=== PATIENT | male | born 1950 | race African-American/Black ===

== ENCOUNTER 2016-07-06 03:21 | Emergency (ER) | payer MEDICARE ==
[~2016-07-06] VITALS: Ht 172.7 cm; Wt 55.5 kg
[2016-07-06 03:25] VITALS: Ht 172.7 cm; Wt 55.5 kg
--- NOTE | 2016-07-06 03:51 | ERA ---
ER Documentation Chief Complaint Date/Time DATE: 07/06/16 TIME: 03:50 Chief Complaint medication refill hiv medicines, sore throat HPI 66-year-old male presenting with a chief complaint of medication refill. Patient is wanting a medication refill for his HIV medications. Patient is complaining of sores on the tongue and pharyngitis. Patient has no other complaints at this time. Pt denies weight loss, fevers, nausea, vomiting, diarrhea, constipation, hyperhidrosis, rigors, fatigue, difficulty breathing, chest pain, or change in bowl/bladder habits. The patient denies difficulty breathing, dysphagia, change in voice, drooling, fatigue, oral swelling, ear pain or meningismus. ROS All systems reviewed and are negative except as per history of present illness. Allergies Allergies: Coded Allergies: No Known Allergy (Unverified , 07/06/16) Physical Exam Vitals Vital Signs Date Time Temp Pulse Resp B/P Pulse Ox O2 Delivery O2 Flow Rate FiO2 07/06/16 03:25 98.3 96 20 168/90 97 Physical Exam Const: [] Head: Atraumatic Eyes: Normal Conjunctiva ENT: Normal External Ears, Nose and Mouth. Neck: Full range of motion..~ No meningismus. Resp: Clear to auscultation bilaterally Cardio: Regular rate and rhythm, no murmurs Abd: Soft, non tender, non distended. Normal bowel sounds Skin: No petechiae or rashes Back: No midline or flank tenderness Ext: No cyanosis, or edema Neur: Awake and alert Psych: Normal Mood and Affect Procedures/MDM Patient is an HIV positive individual wanting medication refill. Enlisted the help of my supervising physician who has okayed it for me to refill the medication for 1 month and advised the patient that this is a one-time deal and we will no longer refill medication for him and that he has to follow-up with primary care provider for refill. Patient is in no acute distress. Physical exam is unremarkable except for white lesions on the tongue that are unable to be scraped off most consistent with leukoplakia as they are not tender. Patient has no other complaints. Patient is currently stable. Patient will be discharged with discharge instructions and return precautions. Departure Condition: Stable Additional Instructions: Follow up with your PCP within the next 1-3 days. Return the the emergency department immediately if symptoms worsen or change. If you have any questions regarding medications, ask your pharmacist or us before you leave. If any adverse reactions occur while taking your medications, discontinue the treatment and return to the emergency department immediately. Take your medications as directed, and complete the entire course of treatment. VANESSA NAJERA PA-C July 06, 2016 03:51
[2016-07-06] MEDS ORDERED: ABAC1TAB12 PO (04:03)
== END 2016-07-06 04:26 | disposition home or self-care (01) ==
LOC: FTE 03:21
DX: Z76.0 Encounter for issue of repeat prescription (principal)
CPT/HCPCS: 99281

== ENCOUNTER 2017-01-20 08:17 | Inpatient (IN) | payer OTHER ==
[~2017-01-20] VITALS: Ht 180.3 cm; Wt 54.5 kg
[~2017-01-20 08:17] MED LIST: ABAC1TAB12 PO
[2017-01-20] MEDS ORDERED: MAGNESIUM SULFATE 2 GM/50 ML 50 ML IVPB STA (08:20)
[2017-01-20] MEDS ORDERED: IPRATROPIUM (NEB) 0.5 MG/2.5 ML AMP INH STA (08:20)
[2017-01-20] MEDS ORDERED: ALBUTEROL 0.5% (NEB) 2.5 MG/0.5 ML AMP INH STA (08:20)
[2017-01-20] MEDS ORDERED: METHYLPREDNISOLONE 125 MG INJ IV STA (08:20)
[2017-01-20] MEDS: LEVOFLOXACIN 750MG/D5W (PMX) 150 ML IVPB ONE ×2 (08:53→09:12)
--- NOTE | 2017-01-20 09:11 | RADRPT ---
PROCEDURE: XR Chest. CLINICAL INDICATION: Possible sepsis. Dyspnea. TECHNIQUE: Single frontal chest x-ray. COMPARISON: None. FINDINGS: Blunting of the right costophrenic angle is seen. Probable small right pleural effusion is present. Localized scarring at this location is a possibility as well. The lungs are hyperinflated. No focal acute infiltrate is seen. There is no pneumothorax on either side, and no evidence for pneumonia. The cardiomediastinal silhouette is unremarkable. The osseous structures are notable for significan t degenerative enthesopathy of the spine. Bony bridging and old healed post traumatic injury of the left posterolateral rib cage is noted. Surgical clips are seen overlapping the right upper quadrant of the abdomen and/or right lower inferior chest cavity. IMPRESSION: 1. Hyperinflated lungs without acute pulmonary infiltrate. 2. Blunting of the right costophrenic angle. Scarring and/or tiny pleural effusion could cause this appearance. RPTAT: PP .Nain Jacobsen MD, MD Date Time Electronically viewed and signed by .Nain Jacobsen MD, on 01/20/2017 09:10 .B/
[2017-01-20 09:19] LABS: ABNORMAL IP MESSAGE 1; BASOPHILS % 0.2 % (0.0-2.0); EOSINOPHILS % 0.2 % (0.0-7.0); HEMATOCRIT 40.5 % (42.0-52.0); HEMOGLOBIN 13.7 g/dl (14.0-18.0); LYMPHOCYTES # 0.6 10^3/ul (0.8-2.9); LYMPHOCYTES % 6.8 % (15.0-51.0); MEAN CORPUSCULAR HEMOGLOBIN 36.3 pg (29.0-33.0); MEAN CORPUSCULAR HGB CONC 33.8 g/dl (32.0-37.0); MEAN CORPUSCULAR VOLUME 107.4 fl (82.0-101.0); MEAN PLATELET VOLUME 10.4 fl (7.4-10.4); MONOCYTE # 1.1 10^3/ul (0.3-0.9); MONOCYTES % 13.9 % (0.0-11.0); NEUTROPHIL # 6.3 10^3/ul (1.6-7.5); NEUTROPHILS % 78.7 % (39.0-77.0); PLATELET COUNT 145 10^3/UL (140-415); POSITIVE DIFF @See below; RED BLOOD COUNT 3.77 10^6/ul (4.70-6.10); RED CELL DISTRIBUTION WIDTH 11.7 % (11.5-14.5); WHITE BLOOD COUNT 8.1 10^3/ul (4.8-10.8)
[2017-01-20 09:45] LABS: INR 1.01; PROTIME 13.4 Sec (11.9-14.9)
[2017-01-20 09:46] LABS: PARTIAL THROMBOPLASTIN TIME 29.7 Sec (25.0-35.0)
[2017-01-20 09:47] LABS: ALANINE AMINOTRANSFERASE 42 IU/L (13-69); ALBUMIN 4.2 g/dl (3.3-4.9); ALBUMIN/GLOBULIN RATIO 1.16; ALKALINE PHOSPHATASE 72 IU/L (42-121); ANION GAP 15 (8-16); ASPARTATE AMINO TRANSFERASE 48 IU/L (15-46); BILIRUBIN,INDIRECT 0.8 mg/dl (0-1.1); BILIRUBIN,TOTAL 0.8 mg/dl (0.2-1.3); BLOOD UREA NITROGEN 11 mg/dl (7-20); CALCIUM 9.4 mg/dl (8.4-10.2); CARBON DIOXIDE 32 mmol/L (21-31); CHLORIDE 98 mmol/L (97-110); GLUCOSE 90 mg/dl (70-220); LACTATE DEHYDROGENASE 557 IU/L (313-618); POTASSIUM 4.4 mmol/L (3.5-5.1); SODIUM 141 mmol/L (135-144); TOTAL PROTEIN 7.8 g/dl (6.1-8.1)
[2017-01-20 09:58] LABS: TROPONIN-I < 0.012 ng/ml (0.00-0.12)
[2017-01-20] MEDS ORDERED: morphine 4 MG/ML VIAL IV STA (10:11)
[2017-01-20] MEDS ORDERED: ONDANSETRON 4 MG INJ IV STA (10:11)
--- NOTE | 2017-01-20 10:19 | ERD ---
ER Documentation Chief Complaint Chief Complaint PRODUCTIVE COUGH AND CONGESTION WITH MOD SOB. NO FEVERS NOTED MILD CWP HPI This is a very pleasant 66-year-old gentleman history of HIV, unknown CD4 count but undetectable viral load on antiviral medication. The patient has a long- standing history of COPD. He states that he has had productive cough and congestion with moderate shortness of breath for approximately 48 hours. He denies any pleuritic pain. He denies fevers or chills. No recent travel, sick contacts, antibiotics. No recent hospitalization within the last 3 months. He denies AIDS defining illness such as PCP. ROS All systems reviewed and are negative except as per history of present illness. Medications Home Meds Active Scripts Abacavir/Dolutegravir/Lamivudi (Triumeq Tablet) 1 Each Tablet, 1 EACH PO DAILY for 28 Days, TAB Prov:VANESSA NAJERA PA-C 07/06/16 Allergies Allergies: Coded Allergies: No Known Allergy (Unverified , 07/06/16) PMhx/Soc History of Surgery: Yes (BOWEL OBSTRUCTION) Anesthesia Reaction: No Hx Neurological Disorder: No Hx Respiratory Disorders: Yes (COPD) Hx Cardiac Disorders: Yes (HTN) Hx Psychiatric Problems: No Hx Miscellaneous Medical Probl: Yes (HIV) Hx Alcohol Use: No Hx Substance Use: No Hx Tobacco Use: No Smoking Status: Former smoker FmHx Family History: No diabetes Physical Exam Vitals Vital Signs Date Time Temp Pulse Resp B/P Pulse Ox O2 Delivery O2 Flow Rate FiO2 01/20/17 08:32 108 28 94 Nasal Cannula 2.0 01/20/17 08:30 98.7 107 24 157/96 93 Nasal Cannula 2.0 01/20/17 08:30 Nasal Cannula 2.0 01/20/17 08:30 Nasal Cannula 2 01/20/17 08:25 98.1 103 22 154/89 86 Physical Exam General: Well developed, well nourished, no acute distress Head: Normocephalic, atraumatic. Eyes: Pupils equally reactive, EOM intact ENT: Moist mucous membranes Neck: Supple, no lymphadenopathy Respiratory: Diffuse wheezing, increased work of breathing Cardiovascular: Slight tachycardia, no murmurs, rubs, or gallops Abdominal: Soft, non-tender, non-distended, no peritoneal signs : Deferred MSK: No edema, no unilateral swelling, 5/5 strength Neurologic: Alert and oriented, moving all extremities, normal speech, no focal weakness, no cerebellar signs Skin: No rash Psych: Normal mood Result Diagram: 01/20/17 0855 01/20/17 0855 Results 24 hrs Laboratory Tests Test 01/20/17 08:55 White Blood Count 8.110^3/ul Red Blood Count 3.7710^6/ul Hemoglobin 13.7g/dl Hematocrit 40.5% Mean Corpuscular Volume 107.4fl Mean Corpuscular Hemoglobin 36.3pg Mean Corpuscular Hemoglobin Concent 33.8g/dl Red Cell Distribution Width 11.7% Platelet Count 30002^3/UL Mean Platelet Volume 10.4fl Neutrophils % 78.7% Lymphocytes % 6.8% Monocytes % 13.9% Eosinophils % 0.2% Basophils % 0.2% Nucleated Red Blood Cells % 0.0/100WBC Neutrophils # 6.310^3/ul Lymphocytes # 0.610^3/ul Monocytes # 1.110^3/ul Eosinophils # 0.010^3/ul Basophils # 0.010^3/ul Nucleated Red Blood Cells # 0.010^3/ul Prothrombin Time 13.4Sec Prothrombin Time Ratio 1.0 INR International Normalized Ratio 1.01 Activated Partial Thromboplast Time 29.7Sec Sodium Level 141mmol/L Potassium Level 4.4mmol/L Chloride Level 98mmol/L Carbon Dioxide Level 32mmol/L Anion Gap 15 Blood Urea Nitrogen 11mg/dl Creatinine 1.00mg/dl Glucose Level 90mg/dl Lactic Acid Level 1.7mmol/L Calcium Level 9.4mg/dl Total Bilirubin 0.8mg/dl Direct Bilirubin 0.00mg/dl Indirect Bilirubin 0.8mg/dl Aspartate Amino Transf (AST/SGOT) 48IU/L Alanine Aminotransferase (ALT/SGPT) 42IU/L Alkaline Phosphatase 72IU/L Lactate Dehydrogenase 557IU/L Troponin I < 0.012ng/ml Total Protein 7.8g/dl Albumin 4.2g/dl Globulin 3.60g/dl Albumin/Globulin Ratio 1.16 Current Medications Medications (Trade) Dose Ordered Sig/Jude Route PRN Reason Start Time Stop Time Status Last Admin Dose Admin Levofloxacin/ Dextrose (Levaquin 750 Mg/ D5W 150 ml (Pmx)) 150 ml @ 100 mls/hr ONCE ONCE IVPB 01/20/17 08:30 01/20/17 09:59 DC 01/20/17 09:12 Albuterol (Proventil 0.5% (Neb)) 10 mg ONCE STAT INH 01/20/17 08:20 01/20/17 08:24 DC 01/20/17 08:30 Ipratropium [place] (Atrovent 0.02% (Neb)) 1 mg ONCE STAT INH 01/20/17 08:20 01/20/17 08:24 DC 01/20/17 08:30 Methylprednisolone Sodium Succinate 125 mg 125 mg ONCE STAT IV 01/20/17 08:20 01/20/17 08:24 DC 01/20/17 08:52 Magnesium Sulfate (Magnesium Sulfate 2 Gm/50 ml) 50 ml @ 25 mls/hr ONCE STAT IVPB 01/20/17 08:20 01/20/17 10:19 01/20/17 08:52 Morphine Sulfate (morphine) 4 mg ONCE STAT IV 01/20/17 10:11 01/20/17 10:12 DC Ondansetron HCl (Zofran Inj) 4 mg ONCE STAT IV 01/20/17 10:11 01/20/17 10:12 DC Procedures/MDM EKG, MONITORS, & DIAGNOSTIC IMAGING: EKG: I reviewed and interpreted a 12-lead EKG. Rhythm: Normal sinus rhythm Ectopy: None Intervals: No abnormalities ST segments: No elevations or depressions T waves: No contiguous inversions Chest x-ray: I reviewed and interpreted a 1 view of the chest Mediastinum: No enlargement Cardiac silhouette: No cardiomegaly Airspace: Clear lung guerrero bilaterally without evidence of pneumothorax Bones: No evidence of fracture LAB INTERPRETATION: No significant leukocytosis, negative troponin, normal lactic acid, normal LDH MEDICAL DECISION MAKING: The patient has a history of COPD and presents with likely COPD with exacerbation. The patient will need sepsis screening lower clinical concern for pneumonia. The patient is at risk for this however. No signs or symptoms concerning for pulmonary embolism. The patient will benefit from breathing treatment. He does have hypoxia I would tolerate lower saturations around 91 and 92% though given the patient's history of COPD. ER COURSE: Patient was given a breathing treatment, magnesium, Solu-Medrol, Levaquin. Blood cultures taken prior to antibiotics. Antibiotics provided for treatment of COPD exacerbation rather than pneumonia. The patient was given IV fluids. The patient does have mild improvement of symptoms but still has significant oxygen requirement with 2-3 L to require saturations of 91%. For this reason I would recommend inpatient hospitalization. The patient has no white count, negative troponin, normal lactic acid. No evidence of PCP pneumonia. The patient's symptoms are improving. I kept the patient and/or family informed of laboratory and diagnostic imaging results throughout the emergency room course. DISPOSITION PLAN: Medical surgical admission for management of COPD with exacerbation requiring frequent nebs. CONSULTATION: Accepting care team and consultations: I discussed the current laboratory data, diagnostic imaging and emergency care provided. Admitting team: Dr. Calixto Admitting team indication: Insurance directed Departure Diagnosis: Primary Impression: COPD with exacerbation Additional Impressions: Hypoxia History of HIV infection Condition: Stable JEAN CLAUDE LOMELI MD Jan 20, 2017 10:19
[2017-01-20 10:30] VITALS: TEMP 98.7
[2017-01-20] MEDS ORDERED: ACETAMINOPHEN 325 MG TAB PO PRN (10:30)
[2017-01-20] MEDS ORDERED: ONDANSETRON 4 MG INJ IV PRN ×2 (10:30→12:30)
--- NOTE | 2017-01-20 11:27 | HP ---
Date/Time of Note Date/Time of Note DATE: 01/20/17 TIME: 11:20 Assessment/Plan VTE Prophylaxis VTE Prophylaxis Intervention: LMWH Assessment/Plan Assessment/Plan 66 yo M with a 2 day hx of SOB and back pain admitted and mannaged as follows: 1. COPD exacerbation with hypoxia 2. Influenza B infection causing atypical Pneumonia 3. HIV disease on HAART therapy PLAN: Treat COPD with RTC bronchodilator therapy and supplemental O2. Patient had high dose parenteral steroid in ER, will hold off on continuing in the setting of #2 Tamiflu therapy and droplet precautions Continue HAART therapy and assess for control Supportive care and PRN pain control Further interventions per clinical course. Plan of care has been discussed with patient, questions answered and patient has verbalized understanding. HPI/ROS Admit Date/Time Admit Date/Time 01/20/17 Hx of Present Illness 66-year-old male with a past medical history of HIV on treatment, COPD who presents today with a 2 day history of worsening difficulty in breathing as well as back pain bilaterally. Patient states his been having worsening cough productive of greenish sputum, he mentions night sweats but he is a poor historian and when I try to get more information about that it was not quite clear. He says he has had subjective fevers however. Patient was trying to really emphasize the fact that he has been and was still ill, and as a result, his history was somewhat sketchy. He does state he has been compliant with his HIV medications however, while he does remember his last CD4 count, he knows his tests have always been good. He quit smoking more than 13 years ago, but will smoke marijuana very occasionally once a month. He is on multiple inhalers at home including Spiriva and breo and states he has been using these with no improvement. He is being admitted for COPD exacerbation and hypoxia. Also found to be positive for influenza. ROS 12 point review if systems was done and pertinent findings are as noted. Constitutional: fatigue, No chills, No febrile Respiratory: cough, pleuritic pain, shortness of breath, sputum, wheezing Cardiovascular: No chest pain Gastrointestinal: no complaints Musculoskeletal: back pain Neurologic: no complaints PMH/Family/Social Past Medical History * HIV * COPD Past Surgical History * exp lap for bowel obstruction Social History Smoking Status: Former smoker Exam/Review of Systems Vital Signs Vitals Vital Signs Date Time Temp Pulse Resp B/P Pulse Ox O2 Delivery O2 Flow Rate FiO2 01/20/17 08:32 108 28 94 Nasal Cannula 2.0 01/20/17 08:30 98.7 157/96 Exam Constitutional: alert, oriented, No distress Psych: anxiety Head: atraumatic, normocephalic Eyes: PERRL ENMT: nl external ears & nose, nl lips & teeth Neck: supple, No jvd Respiratory: crackles/rales (mild in R lung base), diminished breath sounds, No labored breathing, No wheezing Cardiovascular: regular rate and rhythm, No murmurs/extra sounds Extremities: No edema Neurological: nl mental status Labs Result Diagram: 01/20/1785401/20/1755 Medications Medications Current Medications Oseltamivir Phosphate (Tamiflu) 75 mg ONCE ONCE PO ; Start 01/20/17 at 11:30; Stop 01/20/17 at 11:31 Procedures Procedures Laboratory Tests Test 01/20/17 08:55 White Blood Count 8.110^3/ul Red Blood Count 3.7710^6/ul Hemoglobin 13.7g/dl Hematocrit 40.5% Mean Corpuscular Volume 107.4fl Mean Corpuscular Hemoglobin 36.3pg Mean Corpuscular Hemoglobin Concent 33.8g/dl Red Cell Distribution Width 11.7% Platelet Count 41188^3/UL Mean Platelet Volume 10.4fl Neutrophils % 78.7% Lymphocytes % 6.8% Monocytes % 13.9% Eosinophils % 0.2% Basophils % 0.2% Nucleated Red Blood Cells % 0.0/100WBC Neutrophils # 6.310^3/ul Lymphocytes # 0.610^3/ul Monocytes # 1.110^3/ul Eosinophils # 0.010^3/ul Basophils # 0.010^3/ul Nucleated Red Blood Cells # 0.010^3/ul Prothrombin Time 13.4Sec Prothrombin Time Ratio 1.0 INR International Normalized Ratio 1.01 Activated Partial Thromboplast Time 29.7Sec Sodium Level 141mmol/L Potassium Level 4.4mmol/L Chloride Level 98mmol/L Carbon Dioxide Level 32mmol/L Anion Gap 15 Blood Urea Nitrogen 11mg/dl Creatinine 1.00mg/dl Glucose Level 90mg/dl Lactic Acid Level 1.7mmol/L Calcium Level 9.4mg/dl Total Bilirubin 0.8mg/dl Direct Bilirubin 0.00mg/dl Indirect Bilirubin 0.8mg/dl Aspartate Amino Transf (AST/SGOT) 48IU/L Alanine Aminotransferase (ALT/SGPT) 42IU/L Alkaline Phosphatase 72IU/L Lactate Dehydrogenase 557IU/L Troponin I < 0.012ng/ml Total Protein 7.8g/dl Albumin 4.2g/dl Globulin 3.60g/dl Albumin/Globulin Ratio 1.16 Current Medications Medications (Trade) Dose Ordered Sig/Jude Route PRN Reason Start Time Stop Time Status Last Admin Dose Admin Levofloxacin/ Dextrose (Levaquin 750 Mg/ D5W 150 ml (Pmx)) 150 ml @ 100 mls/hr ONCE ONCE IVPB 01/20/17 08:30 01/20/17 09:59 DC 01/20/17 09:12 100 MLS/HR Albuterol (Proventil 0.5% (Neb)) 10 mg ONCE STAT INH 01/20/17 08:20 01/20/17 08:24 DC 01/20/17 08:30 10 MG Ipratropium [place] (Atrovent 0.02% (Neb)) 1 mg ONCE STAT INH 01/20/17 08:20 01/20/17 08:24 DC 01/20/17 08:30 1 MG Methylprednisolone Sodium Succinate 125 mg 125 mg ONCE STAT IV 01/20/17 08:20 01/20/17 08:24 DC 01/20/17 08:52 125 MG Magnesium Sulfate (Magnesium Sulfate 2 Gm/50 ml) 50 ml @ 25 mls/hr ONCE STAT IVPB 01/20/17 08:20 01/20/17 10:19 DC 01/20/17 08:52 25 MLS/HR Morphine Sulfate (morphine) 4 mg ONCE STAT IV 01/20/17 10:11 01/20/17 10:12 DC 01/20/17 10:32 4 MG Ondansetron HCl (Zofran Inj) 4 mg ONCE STAT IV 01/20/17 10:11 01/20/17 10:12 DC 01/20/17 10:32 4 MG Ondansetron HCl (Zofran Inj) 4 mg BRIDGE ORDER PRN IV NAUSEA AND/OR VOMITING 01/20/17 10:30 01/21/17 10:29 Acetaminophen (Tylenol Tab) 650 mg ER BRIDGE PRN PO MILD PAIN/FEVER 01/20/17 10:30 01/21/17 10:29 Oseltamivir Phosphate (Tamiflu) 75 mg ONCE ONCE PO 01/20/17 11:30 01/20/17 11:31 PROCEDURE: XR Chest. CLINICAL INDICATION: Possible sepsis. Dyspnea. TECHNIQUE: Single frontal chest x-ray. COMPARISON: None. FINDINGS: Blunting of the right costophrenic angle is seen. Probable small right pleural effusion is present. Localized scarring at this location is a possibility as well. The lungs are hyperinflated. No focal acute infiltrate is seen. There is no pneumothorax on either side, and no evidence for pneumonia. The cardiomediastinal silhouette is unremarkable. The osseous structures are notable for significant degenerative enthesopathy of the spine. Bony bridging and old healed post traumatic injury of the left posterolateral rib cage is noted. Surgical clips are seen overlapping the right upper quadrant of the abdomen and/or right lower inferior chest cavity. IMPRESSION: 1. Hyperinflated lungs without acute pulmonary infiltrate. 2. Blunting of the right costophrenic angle. Scarring and/or tiny pleural effusion could cause this appearance. RPTAT: PP .Nain Jacobsen MD, MD Date Time Electronically viewed and signed by .Nain Jacobsen MD, MD on 01/20/2017 09:10 .B/ CC: JEAN CLAUDE LOMELI MD I reviewed EKG Rate: Within normal limits Rhythm: sinus Note: No ST elevation or depressions noted concerning for acute ischemic event. CATHERINE CATHERINE Jan 20, 2017 11:27
[2017-01-20] MEDS ORDERED: OSELTAMIVIR 75 MG CAP PO ONE (11:30)
[2017-01-20] MEDS ORDERED: NON-FORMULARY/PATIENT OWN MED (Abacavir/Dolutegravir/Lamivudi (Triumeq Tablet) 1 EACH) PO SCH (12:30)
[2017-01-20 14:10] VITALS: BP 136/89; PULSE 102; RESP 18
--- NOTE | 2017-01-20 14:44 | RADRPT ---
Echocardiogram Report Patient Name: LIZABETH HART Gender: Male Date: 1950 Study Date: 20-Jan-2017 Front Maker Lockstitch: Pola Naidu [facility] Location: [facility] Ref. Physician: CATHERINE CATHERINE Quality: Adequate Procedures: Transthoracic echocardiogram with complete 2D, M-Mode, and doppler examination. Indications: Hypoxia. 2D/M Mode Doppler Measurement Value Normal Ranges Measurement Value Normal Ranges LVIDd 2D 3.0 3.5 - 5.6 cm AV Peak Eliecer 1.4 m/sec LVIDs 2D 1.9 2.1 - 4.1 cm AV Peak PG 7.0 mmHg FS 2D 34.5 % LVOT Peak Eliecer 1.0 m/sec LVPWd 2D 1.3 0.6 - 1.1 cm LVOT Peak PG 4.0 mmHg IVSd 2D 1.3 0.6 - 1.1 cm MV E Peak Eliecer 0.8 m/sec IVS/LVPW 2D 1.0 MV A Peak Eliecer 1.1 m/sec AoR Diam 2D 3.4 2.0 - 3.7 cm MV E/A 0.7 LA/Ao 2D 1 0 - 1 MV Decel Time 137 msec EDV 2D 25.9 cm3 MV E/A 0.7 ESV 2D 7.3 cm3 TR Peak Eliecer 3.5 m/sec LA Dimen 2D 3.2 2.3 - 4.0 cm TR Peak PG 49.0 mmHg RVSP 59.0 mmHg Findings Left Ventricle: Normal left ventricular systolic function. Normal left ventricular cavity size. Mild concentric left ventricular hypertrophy. Ejection fraction is visually estimated at 65 %. Abnormal Diastolic Function. Right Ventricle: Normal right ventricular size. Normal right ventricular systolic function. Left Atrium: The left atrium is normal in size. Right Atrium: The right atrium is normal in size. Mitral Valve: Mild mitral leaflet calcification. Mild mitral annular calcification. Trace mitral regurgitation. Aortic Valve: Normal appearance of the aortic valve. No significant aortic stenosis or insufficiency. Tricuspid Valve: Normal appearance of the tricuspid valve. Estimated peak PA systolic pressure 59 mmHg. There is mild tricuspid regurgitation. Pulmonic Valve: Pulmonic valve not well visualized. There is trace pulmonic regurgitation. Pericardium: Normal pericardium with no significant pericardial effusion. Aorta: Normal aortic root. IVC: Normal size and normal respiratory collapse consistent with normal right atrial pressure. Conclusions 1.Normal left ventricular systolic function. Normal left ventricular cavity size. Mild concentric left ventricular hypertrophy. Ejection fraction is visually estimated at 65 %. Abnormal Diastolic Function. 2.The left atrium is normal in size. 3.Mild mitral leaflet calcification. Mild mitral annular calcification. Trace mitral regurgitation. 4.Normal appearance of the aortic valve. No significant aortic stenosis or insufficiency. 5.Normal appearance of the tricuspid valve. Estimated peak PA systolic pressure 59 mmHg. There is mild tricuspid regurgitation. 6.Normal size and normal respiratory collapse consistent with normal right atrial pressure. Electronically Signed By: Damaso Foreman 20-Jan-2017 14:43:04 -0800 Patient Name: LIZABETH HART Study Date: 20-Jan-[id number]
[2017-01-20] MEDS: HYDROCODONE/APAP (5/325) TAB PO PRN ×2 (15:01→19:09)
[2017-01-20 15:14] VITALS: Ht 180.3 cm; Wt 54.5 kg
[2017-01-20] MEDS: [UNRECOGNIZED DRUG - REMARK] XX SCH (15:30)
[2017-01-20] MEDS: ALBUTEROL/IPRATROPIUM (NEB) 3 ML AMP HHN SCH ×2 (17:22→21:28)
[2017-01-20 20:12] VITALS: BP 151/87; RESP 17
[2017-01-20] MEDS: GABAPENTIN 100 MG CAP NGT SCH (21:29)
[2017-01-20] MEDS: OSELTAMIVIR 75 MG CAP PO SCH (21:30)
[2017-01-20] MEDS: DOCUSATE SODIUM 100 MG CAP PO SCH (21:30)
[2017-01-20] MEDS: SALMETEROL/FLUTICASONE 250/50 INHA INH SCH (22:46)
[2017-01-21] MEDS: ALBUTEROL/IPRATROPIUM (NEB) 3 ML AMP HHN SCH ×7 (01:41→20:54)
[2017-01-21] MEDS: HYDROCODONE/APAP (5/325) TAB PO PRN ×4 (02:25→18:00)
[2017-01-21 02:27] VITALS: BP 117/73; RESP 17
--- NOTE | 2017-01-21 07:20 | CONS ---
DATE OF ADMISSION: 01/20/2017 DATE OF CONSULTATION: 01/20/2017 INFECTIOUS DISEASE CONSULTATION REASON FOR CONSULTATION: Antibiotic management. HISTORY OF PRESENT ILLNESS: Sanford Gates is a 66-year-old male who comes in with shortness of br eath and back pain, and is being seen for antibiotic management. His past problems include: 1. HIV, on treatment. 2. COPD. He presents today with a 2-day history of increasing difficulty in breathing, as well as back pain. The patient states he has been having worsening cough productive of greenish sputum. He mentions n ight sweats, but he is a poor historian. He does have subjective fevers. He has been compliant wit h his HIV medications. He quit smoking 13 years ago. He will occasionally smokes marijuana. He is on multiple inhalers at home including Spiriva and Breo. Currently being admitted for exacerbation of COPD, hypoxemia and for influenza ____. On admission, his white count was 8.1, H and H of 13.7 and 40.5, platelet count of 145,000. BUN and creatinine if 11/1.0. His AST is 48, ALT is 42. Lact ate dehydrogenase 557. PAST MEDICAL HISTORY: Operations: Status post exploratory laparotomy for bowel obstruction. FAMILY HISTORY: Noncontributory. SOCIAL HISTORY: He is a former smoker, he does not drink or abuse drugs. ALLERGIES: NONE TO PENICILLIN, SULFA OR FOODS. MEDICATIONS: Per chart. REVIEW OF SYSTEMS: As per HPI. PHYSICAL EXAMINATION: GENERAL: The patient is a well-developed, well-nourished male who is alert, responsive, in no acute distress. VITAL SIGNS: Stable. He is afebrile. SKIN: Without generalized rash. HEENT: Within normal limits. NECK: Supple. LYMPH NODES: None palpable. CHEST: Decreased breath sounds at the bases. HEART: Without murmur or gallop. ABDOMEN: Soft, nontender without organosplenomegaly or masses. EXTREMITIES: Without cyanosis, clubbing or edema. RECTAL AND GENITAL: Deferred. NEUROLOGIC: No focal neurological abnormality. The patient presents now with worsening of chronic obstructive pulmonary disease, his influenza ____ is positive. The patient started on Tamiflu 75 mg b.i.d. Chest x-ray shows hyperinflated lungs wi thout acute pulmonary infiltrate, blunting of the costophrenic angles, scarring and/or tiny pleural effusions could cause this appearance. IMPRESSION AND PLAN: Continue him on Tamiflu. If he becomes more symptomatic, we will add antibiot ics to his regimen. I believe he received 1 dose of Levaquin and 1 dose of methylprednisolone. I w ill dictate my findings to the hospitalist. Dictated By: VI FERRER MD, JD/ANIL Conf#: [id number] DID#: [id number] CC: CATHERINE CATHERINE MD;*EndCC*
[2017-01-21 07:36] VITALS: BP 100/66; RESP 20
[2017-01-21] MEDS: GABAPENTIN 100 MG CAP NGT SCH ×3 (09:08→21:25)
[2017-01-21] MEDS: OSELTAMIVIR 75 MG CAP PO SCH ×2 (09:08→21:25)
[2017-01-21] MEDS: DOCUSATE SODIUM 100 MG CAP PO SCH ×2 (09:08→21:25)
[2017-01-21] MEDS: SALMETEROL/FLUTICASONE 250/50 INHA INH SCH ×2 (09:09→21:25)
[2017-01-21 09:11] VITALS: BP 113/71
[2017-01-21] MEDS: LISINOPRIL 10 MG TAB PO SCH (09:11)
--- NOTE | 2017-01-21 12:02 | PN ---
Date/Time of Note Date/Time of Note DATE: 01/21/17 TIME: 11:59 Assessment/Plan VTE Prophylaxis VTE Prophylaxis Intervention: SCD's Lines/Catheters Urinary Cath still in place: No Assessment/Plan Assessment/Plan 66 yo M with a 2 day hx of SOB and back pain admitted and mannaged as follows: 1. COPD exacerbation with hypoxia: improving 2. Influenza B infection causing atypical Pneumonia 3. HIV disease on HAART therapy PLAN: Continue to treat COPD with RTC bronchodilator therapy and supplemental O2 / wean as tolerated Patient had high dose parenteral steroid in ER, will continue to hold off on continuing in the setting of #2 Continue Tamiflu therapy and droplet precautions Continue HAART therapy and assess for control Add levaquin per ID recs Supportive care and PRN pain control Further interventions per clinical course. Plan of care has been discussed with patient, questions answered and patient has verbalized understanding. Subjective 24 Hr Interval Summary Free Text/Dictation Still hypoxic requiring 2L, coughing, pain is improved, but still present with inspiration Exam/Review of Systems Vital Signs Vitals Vital Signs Date Time Temp Pulse Resp B/P Pulse Ox O2 Delivery O2 Flow Rate FiO2 01/21/17 09:11 113/71 01/21/17 08:34 98 18 92 21 01/21/17 07:36 97.9 01/21/17 05:49 Nasal Cannula 2.0 Intake and Output 01/20/17 01/20/17 01/21/17 15:00 23:00 07:00 Intake Total 200 ml 600 ml Balance 200 ml 600 ml Results Result Diagram: 01/20/17 0855 01/20/17 0855 Results 24 hrs Laboratory Tests Test 01/20/17 12:26 01/21/17 11:02 Lactic Acid Level 2.4 *H White Blood Count Pending Red Blood Count Pending Hemoglobin Pending Hematocrit Pending Mean Corpuscular Volume Pending Mean Corpuscular Hemoglobin Pending Mean Corpuscular Hemoglobin Concent Pending Red Cell Distribution Width Pending Platelet Count Pending Mean Platelet Volume Pending Medications Medications Current Medications Oseltamivir Phosphate (Tamiflu) 75 mg BID PO Last administered on 01/21/17t 09 :08; Admin Dose 75 MG; Start 01/20/17 at 21:00 Miscellaneous Information 1 each DAILY PO ; Start 01/20/17 at 12:30; Status UNV Salmeterol Xinafoate/ Fluticasone (Advair 250/50 Diskus) 1 inh BID INH Last administered on 01/21/17 09:09; Admin Dose 1 INH; Start 01/20/17 at 21:00 Tiotropium [place] (Spiriva) 1 inh DAILY INH ; Start 01/21/17 at 09:00 Acetaminophen/ Hydrocodone Bitart ([place] (5/325)) 1 tab Q4H PRN PO pain Last administered on 01/21/17 07:08; Admin Dose 1 TAB; Start 01/20/17 at 12:30 Docusate Sodium (Colace) 100 mg BID PO Last administered on 01/21/17 09:08; Admin Dose 100 MG; Start 01/20/17 at 21:00 Ondansetron HCl (Zofran Inj) 4 mg Q6H PRN IV NAUSEA AND/OR VOMITING; Start 12/27 at 12:30 Miscellaneous Information (*Order Clarification Bulletin) MEDICATION REQUIRES CLARIFICATI... Q8H XX ; Start 01/20/17 at 15:30 Gabapentin (Neurontin) 100 mg TID NGT Last administered on 01/21/17 09:08; Admin Dose 100 MG; Start 01/20/17 at 21:00 Lisinopril (Zestril) 10 mg DAILY PO Last administered on 01/21/17 09:11; Admin Dose 10 MG; Start 01/21/17 at 09:00 Procedures Procedures Echocardiogram Report Patient Name: LIZABETH HART Gender: Male Date: 1950 Study Date: 20-Jan-2017 Retail Specialist: Pola Naidu [facility] Location: [facility] Ref. Physician: CATHERINE CATHERINE Quality: Adequate Procedures: Transthoracic echocardiogram with complete 2D, M-Mode, and doppler examination. Indications: Hypoxia. 2D/M Mode Doppler Measurement Value Normal Ranges Measurement Value Normal Ranges LVIDd 2D 3.0 3.5 - 5.6 cm AV Peak Eliecer 1.4 m/sec LVIDs 2D 1.9 2.1 - 4.1 cm AV Peak PG 7.0 mmHg FS 2D 34.5 % LVOT Peak Eliecer 1.0 m/sec LVPWd 2D 1.3 0.6 - 1.1 cm LVOT Peak PG 4.0 mmHg IVSd 2D 1.3 0.6 - 1.1 cm MV E Peak Eliecer 0.8 m/sec IVS/LVPW 2D 1.0 MV A Peak Eliecer 1.1 m/sec AoR Diam 2D 3.4 2.0 - 3.7 cm MV E/A 0.7 LA/Ao 2D 1 0 - 1 MV Decel Time 137 msec EDV 2D 25.9 cm3 MV E/A 0.7 ESV 2D 7.3 cm3 TR Peak Eliecer 3.5 m/sec LA Dimen 2D 3.2 2.3 - 4.0 cm TR Peak PG 49.0 mmHg RVSP 59.0 mmHg Findings Left Ventricle: Normal left ventricular systolic function. Normal left ventricular cavity size. Mild concentric left ventricular hypertrophy. Ejection fraction is visually estimated at 65 %. Abnormal Diastolic Function. Right Ventricle: Normal right ventricular size. Normal right ventricular systolic function. Left Atrium: The left atrium is normal in size. Right Atrium: The right atrium is normal in size. Mitral Valve: Mild mitral leaflet calcification. Mild mitral annular calcification. Trace mitral regurgitation. Aortic Valve: Normal appearance of the aortic valve. No significant aortic stenosis or insufficiency. Tricuspid Valve: Normal appearance of the tricuspid valve. Estimated peak PA systolic pressure 59 mmHg. There is mild tricuspid regurgitation. Pulmonic Valve: Pulmonic valve not well visualized. There is trace pulmonic regurgitation. Pericardium: Normal pericardium with no significant pericardial effusion. Aorta: Normal aortic root. IVC: Normal size and normal respiratory collapse consistent with normal right atrial pressure. Conclusions 1. Normal left ventricular systolic function. Normal left ventricular cavity size. Mild concentric left ventricular hypertrophy. Ejection fraction is visually estimated at 65 %. Abnormal Diastolic Function. 2. The left atrium is normal in size. 3. Mild mitral leaflet calcification. Mild mitral annular calcification. Trace mitral regurgitation. 4. Normal appearance of the aortic valve. No significant aortic stenosis or insufficiency. 5. Normal appearance of the tricuspid valve. Estimated peak PA systolic pressure 59 mmHg. There is mild tricuspid regurgitation. 6. Normal size and normal respiratory collapse consistent with normal right atrial pressure. Electronically Signed By: Damaso Foreman 20-Jan-2017 14:43:04 -0800 Patient Name: LIZABETH HART Study Date: 20-Jan-2017 CATHERINE CATHERINE Jan 21, 2017 12:02
[2017-01-21 12:05] LABS: BASOPHILS % 0.1 % (0.0-2.0); HEMATOCRIT 35.5 % (42.0-52.0); HEMOGLOBIN 12.3 g/dl (14.0-18.0); LYMPHOCYTES # 0.8 10^3/ul (0.8-2.9); LYMPHOCYTES % 6.8 % (15.0-51.0); MEAN CORPUSCULAR HEMOGLOBIN 36.9 pg (29.0-33.0); MEAN CORPUSCULAR HGB CONC 34.6 g/dl (32.0-37.0); MEAN CORPUSCULAR VOLUME 106.6 fl (82.0-101.0); MEAN PLATELET VOLUME 10.9 fl (7.4-10.4); MONOCYTE # 1.2 10^3/ul (0.3-0.9); NEUTROPHIL # 9.7 10^3/ul (1.6-7.5); NEUTROPHILS % 82.7 % (39.0-77.0); PLATELET COUNT 150 10^3/UL (140-415); RED BLOOD COUNT 3.33 10^6/ul (4.70-6.10); RED CELL DISTRIBUTION WIDTH 11.6 % (11.5-14.5); WHITE BLOOD COUNT 11.7 10^3/ul (4.8-10.8)
[2017-01-21 12:14] LABS: ALBUMIN 3.6 g/dl (3.3-4.9); BILIRUBIN,INDIRECT 0.3 mg/dl (0-1.1); BILIRUBIN,TOTAL 0.3 mg/dl (0.2-1.3); CALCIUM 8.9 mg/dl (8.4-10.2); CREATININE 1.12 mg/dl (0.61-1.24); POTASSIUM 4.1 mmol/L (3.5-5.1); TOTAL PROTEIN 6.7 g/dl (6.1-8.1)
[2017-01-21] MEDS: LEVOFLOXACIN 500MG/D5W (PMX) 100 ML IVPB SCH (12:51)
[2017-01-21] MEDS: TIOTROPIUM 18 MCG CAPSULE INHA DEV INH SCH (12:51)
[2017-01-21 14:04] VITALS: BP 98/61; RESP 20
[2017-01-21] MEDS: [UNRECOGNIZED DRUG - REMARK] XX SCH ×2 (15:30→23:30)
[2017-01-21] MEDS ORDERED: BISACODYL (EC) 5 MG TAB PO PRN (16:30)
[2017-01-21] MEDS ORDERED: BISACODYL (EC) 5 MG TAB PO ONE (16:30)
--- NOTE | 2017-01-21 17:58 | PN ---
DATE: 01/21/2017 SUBJECTIVE: Patient is awake, feels better. Looks comfortable, no fevers. WBC 11.7, platelets 115, neutrophils 82.7, BUN 14, creatinine 1.12. Lactic acid yesterday was 2.4. MICROBIOLOGY: Blood culture negative. Influenza swab positive for influenza A. ANTIMICROBIALS: The patient is on Tamiflu and levofloxacin. DIAGNOSTICS: Chest x-ray revealed no acute pulmonary infiltrate. PHYSICAL EXAMINATION: GENERAL: Well-developed, elderly -[place]inean man who is alert, in no distress. HEENT: Head atraumatic, normocephalic. Sclerae anicteric. Buccal mucosa pink. NECK: Supple. CHEST: Rise symmetrical. Breath sounds clear. HEART: S1, S2. ABDOMEN: Soft. Bowel tones present. EXTREMITIES: Without cyanosis. ASSESSMENT: 1. Influenza A virus. 2. Chronic obstructive pulmonary disease exacerbation. 3. Human immunodeficiency virus with undetectable viral load, remains on Triumeq. PLAN: The patient remains stable. Continue present care. Continue on current antimicrobials. Ida it for clinical improvement. Dictated By: BETITO BELLO INSTRUCTIONAL SYSTEMS SPECIALIST for VI FERRER MD NI/NTS Conf#: [id number] DID#: [id number] CC: CATHERINE CATHERINE MD;*EndCC*
[2017-01-21 18:23] LABS: LYMPHOCYTE - CD4/CD8 RATIO 1.16 (0.86-5.00)
[2017-01-21 20:20] VITALS: BP 132/79; RESP 18
[2017-01-22] MEDS: ALBUTEROL/IPRATROPIUM (NEB) 3 ML AMP HHN SCH ×3 (01:04→09:50)
[2017-01-22 02:42] VITALS: BP 108/69; RESP 17
[2017-01-22] MEDS: [UNRECOGNIZED DRUG - REMARK] XX SCH (07:30)
[2017-01-22 07:45] VITALS: BP 106/74; RESP 20
[2017-01-22] MEDS: LISINOPRIL 10 MG TAB PO SCH (08:42)
[2017-01-22] MEDS: OSELTAMIVIR 75 MG CAP PO SCH ×2 (08:42→21:35)
[2017-01-22] MEDS: GABAPENTIN 100 MG CAP NGT SCH ×3 (08:42→21:34)
[2017-01-22] MEDS: SALMETEROL/FLUTICASONE 250/50 INHA INH SCH ×2 (08:43→21:34)
[2017-01-22] MEDS: TIOTROPIUM 18 MCG CAPSULE INHA DEV INH SCH (08:43)
[2017-01-22] MEDS: HYDROCODONE/APAP (5/325) TAB PO PRN ×2 (08:48→16:37)
[2017-01-22] MEDS: DOCUSATE SODIUM 100 MG CAP PO SCH ×2 (09:00→21:34)
[2017-01-22] MEDS: DOLUTEGRAVIR SODIUM 50 MG TABLET PO SCH (10:00)
[2017-01-22] MEDS: ABACAVIR/LAMIVUDINE TAB PO SCH (10:00)
[2017-01-22] MEDS ORDERED: MAGNESIUM CITRATE 300 ML BTL PO ONE (11:00)
[2017-01-22] MEDS: TRIMETHOPRIM/SULFAMETHOX (DS) TAB PO SCH (11:21)
[2017-01-22] MEDS: LEVOFLOXACIN 500MG/D5W (PMX) 100 ML IVPB SCH (11:48)
--- NOTE | 2017-01-22 13:08 | PN ---
Date/Time of Note Date/Time of Note DATE: 01/22/17 TIME: 13:05 Assessment/Plan VTE Prophylaxis VTE Prophylaxis Intervention: SCD's Lines/Catheters IV Catheter Type (from Nrs): [place] Urinary Cath still in place: No Assessment/Plan Assessment/Plan 66 yo M with a 2 day hx of SOB and back pain admitted and mannaged as follows: 1. COPD exacerbation with hypoxia: improving 2. Influenza B infection causing atypical Pneumonia 3. HIV / AIDs disease on HAART therapy with CD4 178 4. Noncompliance: Patient admits to forgetting meds occasionally PLAN: Patient counselled on need for med compliance Wean O2 ?Add PCP prophylaxis Continue to treat COPD with RTC bronchodilator therapy Continue Tamiflu therapy and droplet precautions Continue HAART therapy Continue Levaquin Supportive care and PRN pain control Further interventions per clinical course. Plan of care has been discussed with patient, questions answered and patient has verbalized understanding. Subjective 24 Hr Interval Summary Free Text/Dictation still couging with back pain. yet to be weaned off O2 Exam/Review of Systems Vital Signs Vitals Vital Signs Date Time Temp Pulse Resp B/P Pulse Ox O2 Delivery O2 Flow Rate FiO2 01/22/17 07:45 98.9 95 20 106/74 94 01/22/17 01:06 Nasal Cannula 2.0 01/21/17 20:54 27 Intake and Output 01/21/17 01/21/17 01/22/17 15:00 23:00 07:00 Intake Total 100 ml 1920 ml 450 ml Output Total 0 ml 250 ml Balance 100 ml 1920 ml 200 ml Exam Constitutional: alert, frail, oriented Psych: nl mood/affect Head: normocephalic Eyes: PERRL ENMT: mucosa pink and moist Neck: supple Respiratory: diminished breath sounds, No crackles/rales, No labored breathing, No wheezing Cardiovascular: regular rate and rhythm Gastrointestinal: bowel sounds, non-tender, soft Extremities: No edema Neurological: nl mental status Results Result Diagram: 01/21/17 1102 01/21/17 1102 Medications Medications Current Medications Oseltamivir Phosphate (Tamiflu) 75 mg BID PO Last administered on 01/22/17t 08 :42; Admin Dose 75 MG; Start 01/20/17 at 21:00 Salmeterol Xinafoate/ Fluticasone (Advair 250/50 Diskus) 1 inh BID INH Last administered on 01/22/17 08:43; Admin Dose 1 INH; Start 01/20/17 at 21:00 Tiotropium [place] (Spiriva) 1 inh DAILY INH Last administered on 01/22/17 08 :43; Admin Dose 1 INH; Start 01/21/17 at 09:00 Acetaminophen/ Hydrocodone Bitart ([place] (5/325)) 1 tab Q4H PRN PO pain Last administered on 01/22/17 08:48; Admin Dose 1 TAB; Start 01/20/17 at 12:30 Docusate Sodium (Colace) 100 mg BID PO Last administered on 01/21/17 21:25; Admin Dose 100 MG; Start 01/20/17 at 21:00 Ondansetron HCl (Zofran Inj) 4 mg Q6H PRN IV NAUSEA AND/OR VOMITING; Start 12/27 at 12:30 Gabapentin (Neurontin) 100 mg TID NGT Last administered on 01/22/17 08:42; Admin Dose 100 MG; Start 01/20/17 at 21:00 Lisinopril 10 mg 10 mg DAILY PO Last administered on 01/22/17 08:42; Admin Dose 10 MG; Start 01/21/17 at 09:00 Levofloxacin/ Dextrose (Levaquin 500mg/ D5W 100 ml (Pmx)) 100 ml @ 100 mls/hr Q24H IVPB Last administered on 01/22/17 11:48; Admin Dose 100 MLS/HR; Start 01/21/17 at 12:00 Bisacodyl (Dulcolax) 10 mg DAILY PRN PO CONSTIPATION; Start 01/21/17 at 16:30 Abacavir/ Lamivudine (Epzicom) 1 tab DAILY PO ; Start 01/22/17 at 10:00 Dolutegravir Sodium (Tivicay) 50 mg DAILY PO ; Start 01/22/17 at 10:00 Trimethoprim/ Sulfamethoxazole (Bactrim (Ds)) 1 tab DAILY PO Last administered on 01/22/17 11:21; Admin Dose 1 TAB; Start 01/22/17 at 10:30 CATHERINE CATHERINE Jan 22, 2017 13:08
[2017-01-22] MEDS: ALBUTEROL/IPRATROPIUM (NEB) 3 ML AMP HHN PRN (13:30)
[2017-01-22 14:31] VITALS: BP 120/71; RESP 20
[2017-01-22 14:34] LABS: BASOPHILS % 0.1 % (0.0-2.0); EOSINOPHILS # 0.1 10^3/ul (0.0-0.5); EOSINOPHILS % 0.8 % (0.0-7.0); HEMATOCRIT 38.4 % (42.0-52.0); HEMOGLOBIN 12.7 g/dl (14.0-18.0); LYMPHOCYTES # 1.1 10^3/ul (0.8-2.9); LYMPHOCYTES % 15.2 % (15.0-51.0); MEAN CORPUSCULAR HEMOGLOBIN 36.6 pg (29.0-33.0); MEAN CORPUSCULAR HGB CONC 33.1 g/dl (32.0-37.0); MEAN CORPUSCULAR VOLUME 110.7 fl (82.0-101.0); MONOCYTE # 0.8 10^3/ul (0.3-0.9); MONOCYTES % 10.7 % (0.0-11.0); NEUTROPHIL # 5.4 10^3/ul (1.6-7.5); NEUTROPHILS % 72.9 % (39.0-77.0); PLATELET COUNT 156 10^3/UL (140-415); RED BLOOD COUNT 3.47 10^6/ul (4.70-6.10); RED CELL DISTRIBUTION WIDTH 12.2 % (11.5-14.5); WHITE BLOOD COUNT 7.4 10^3/ul (4.8-10.8)
[2017-01-22 14:51] LABS: CALCIUM 9.3 mg/dl (8.4-10.2); CREATININE 1.05 mg/dl (0.61-1.24); POTASSIUM 4.6 mmol/L (3.5-5.1)
[2017-01-22] MEDS ORDERED: SOD CHLORIDE 0.9% 1,000 ML IV ONE (15:30)
[2017-01-22] MEDS: SOD CHLORIDE 0.9% 1,000 ML IV SCH (17:00)
--- NOTE | 2017-01-22 19:34 | CONS ---
Date/Time of Note Date/Time of Note DATE: 01/22/17 TIME: 19:33 Assessment/Plan Assessment/Plan Chief Complaint/Hosp Course SUBJECTIVE: Patient is awake, feels better. Looks comfortable, no fevers. MICROBIOLOGY: Blood culture negative. Influenza swab positive for influenza A. ANTIMICROBIALS: The patient is on Tamiflu and levofloxacin. DIAGNOSTICS: Chest x-ray revealed no acute pulmonary infiltrate. PHYSICAL EXAMINATION: GENERAL: Well-developed, elderly -[place] man who is alert, in no distress. HEENT: Head atraumatic, normocephalic. Sclerae anicteric. Buccal mucosa pink. NECK: Supple. CHEST: Rise symmetrical. Breath sounds clear. HEART: S1, S2. ABDOMEN: Soft. Bowel tones present. EXTREMITIES: Without cyanosis. ASSESSMENT: 1. Influenza A virus. 2. Chronic obstructive pulmonary disease exacerbation. 3. Human immunodeficiency virus with undetectable viral load, remains on Triumeq, CD4 178, likely 2 to acute illness as pt states his viral load is undetectable PLAN: The patient remains stable. Continue present care. Continue on current antimicrobials and add Bactrim daily. Await for clinical improvement. DW pt Problems: Consultation Date/Type/Reason Admit Date/Time Jan 20, 2017 at 10:14 Initial Consult Date Type of Consultation: ID Exam/Review of Systems Vital Signs Vitals Vital Signs Date Time Temp Pulse Resp B/P Pulse Ox O2 Delivery O2 Flow Rate FiO2 01/22/17 14:31 98.0 96 20 120/71 95 01/22/17 13:32 21 01/22/17 09:50 2.0 01/22/17 09:50 Nasal Cannula Intake and Output 01/21/17 01/21/17 01/22/17 15:00 23:00 07:00 Intake Total 100 ml 1920 ml 450 ml Output Total 0 ml 250 ml Balance 100 ml 1920 ml 200 ml Results Result Diagram: 01/22/17 1425 01/22/17 1425 Results 24 hrs Laboratory Tests Test 01/22/17 14:25 White Blood Count 7.4 # Red Blood Count 3.47 L Hemoglobin 12.7 L Hematocrit 38.4 L Mean Corpuscular Volume 110.7 H Mean Corpuscular Hemoglobin 36.6 H Mean Corpuscular Hemoglobin Concent 33.1 Red Cell Distribution Width 12.2 Platelet Count 156 Mean Platelet Volume 10.0 Neutrophils % 72.9 Lymphocytes % 15.2 Monocytes % 10.7 Eosinophils % 0.8 Basophils % 0.1 Nucleated Red Blood Cells % 0.0 Neutrophils # 5.4 Lymphocytes # 1.1 Monocytes # 0.8 Eosinophils # 0.1 Basophils # 0.0 Nucleated Red Blood Cells # 0.0 Sodium Level 139 Potassium Level 4.6 Chloride Level 98 Carbon Dioxide Level 34 H Anion Gap 12 Blood Urea Nitrogen 12 Creatinine 1.05 Glucose Level 94 # Lactic Acid Level 2.2 *H Calcium Level 9.3 Medications Medications Current Medications Oseltamivir Phosphate (Tamiflu) 75 mg BID PO Last administered on 01/22/17 08 :42; Admin Dose 75 MG; Start 01/20/17 at 21:00 Salmeterol Xinafoate/ Fluticasone (Advair 250/50 Diskus) 1 inh BID INH Last administered on 01/22/17 08:43; Admin Dose 1 INH; Start 01/20/17 at 21:00 Tiotropium [place] (Spiriva) 1 inh DAILY INH Last administered on 01/22/17 08 :43; Admin Dose 1 INH; Start 01/21/17 at 09:00 Acetaminophen/ Hydrocodone Bitart ([place] (5/325)) 1 tab Q4H PRN PO pain Last administered on 01/22/17 16:37; Admin Dose 1 TAB; Start 01/20/17 at 12:30 Docusate Sodium (Colace) 100 mg BID PO Last administered on 01/21/17 21:25; Admin Dose 100 MG; Start 01/20/17 at 21:00 Ondansetron HCl (Zofran Inj) 4 mg Q6H PRN IV NAUSEA AND/OR VOMITING; Start 12/27 at 12:30 Gabapentin (Neurontin) 100 mg TID NGT Last administered on 01/22/17 13:07; Admin Dose 100 MG; Start 01/20/17 at 21:00 Lisinopril 10 mg 10 mg DAILY PO Last administered on 01/22/17 08:42; Admin Dose 10 MG; Start 01/21/17 at 09:00 Levofloxacin/ Dextrose (Levaquin 500mg/ D5W 100 ml (Pmx)) 100 ml @ 100 mls/hr Q24H IVPB Last administered on 01/22/17 11:48; Admin Dose 100 MLS/HR; Start 01/21/17 at 12:00 Bisacodyl (Dulcolax) 10 mg DAILY PRN PO CONSTIPATION; Start 01/21/17 at 16:30 Abacavir/ Lamivudine (Epzicom) 1 tab DAILY PO ; Start 01/22/17 at 10:00 Dolutegravir Sodium (Tivicay) 50 mg DAILY PO ; Start 01/22/17 at 10:00 Trimethoprim/ Sulfamethoxazole 1 tab 1 tab DAILY PO Last administered on t 11:21; Admin Dose 1 TAB; Start 01/22/17 at 10:30 Sodium Chloride (NS) 1,000 ml @ 80 mls/hr [id number] IV ; Start 01/22/17 at 17:00 BETITO BELLO NP Jan 22, 2017 19:34
[2017-01-22 20:12] VITALS: BP 149/93; RESP 18
[2017-01-23 02:41] VITALS: BP 136/87; RESP 18
[2017-01-23] MEDS: HYDROCODONE/APAP (5/325) TAB PO PRN ×2 (04:53→08:57)
[2017-01-23] MEDS: ALBUTEROL/IPRATROPIUM (NEB) 3 ML AMP HHN PRN (05:06)
[2017-01-23] MEDS: SOD CHLORIDE 0.9% 1,000 ML IV SCH (05:30)
[2017-01-23 07:00] VITALS: BP_SYST 132; BP_SYST 158; BP_DIAS 67; BP_DIAS 82; RESP 18
[2017-01-23] MEDS: DOLUTEGRAVIR SODIUM 50 MG TABLET PO SCH (08:56)
[2017-01-23] MEDS: OSELTAMIVIR 75 MG CAP PO SCH (08:56)
[2017-01-23] MEDS: BENZONATATE 100 MG CAP PO PRN ×2 (08:56→08:58)
[2017-01-23] MEDS: GABAPENTIN 100 MG CAP NGT SCH ×2 (08:56→12:02)
[2017-01-23] MEDS: DOCUSATE SODIUM 100 MG CAP PO SCH (08:56)
[2017-01-23] MEDS: LISINOPRIL 10 MG TAB PO SCH (08:56)
[2017-01-23] MEDS: TIOTROPIUM 18 MCG CAPSULE INHA DEV INH SCH (08:56)
[2017-01-23] MEDS: ABACAVIR/LAMIVUDINE TAB PO SCH (08:57)
[2017-01-23] MEDS: SALMETEROL/FLUTICASONE 250/50 INHA INH SCH (08:57)
[2017-01-23] MEDS: TRIMETHOPRIM/SULFAMETHOX (DS) TAB PO SCH (08:57)
[2017-01-23] MEDS ORDERED: SULF-182 PO (09:28)
[2017-01-23] MEDS ORDERED: OSLT75C PO (09:28)
[2017-01-23] MEDS ORDERED: ADV25050 INH (09:28)
[2017-01-23] MEDS ORDERED: LISI20TA11 PO (09:28)
[2017-01-23] MEDS ORDERED: TIOT18CA INH (09:28)
[2017-01-23] MEDS ORDERED: IPRA4AER INHALATION (09:30)
[2017-01-23] MEDS: LEVOFLOXACIN 500MG/D5W (PMX) 100 ML IVPB SCH (12:09)
--- NOTE | 2017-01-23 12:40 | PDOCDIS ---
Discharge Instructions DIAGNOSIS Discharge Diagnosis 1. COPD exacerbation with hypoxia: much improved / hypoxia resolved 2. Influenza B infection causing atypical Pneumonia: improved 3. HIV / AIDs disease on HAART therapy with CD4 178 but patient reports undetectable viral load 4. Occasional Noncompliance: Patient admits to forgetting meds occasionally 5. Mild hyperlactatemia likely associated with HAART . CONDITION Patient Condition: Stable HOME CARE INSTRUCTIONS: Special Diet: REGULAR DIET ACTIVITY: Activity Restrictions: Slowly Increase Activity Rest between Activity OTHER ORDERS: Other Orders: We have noticed elevated lactic acid levels which we believe is associated with your HIV drugs. Please notify your HIV provider right away, we recommend discontinuation of the current drugs and replacement with alternate therapy. Please arrange to see your HIV provider as soon as possible. . CATHERINE CAHTERINE. Jan 23, 2017 12:40
[2017-01-23] MEDS ORDERED: LEVO500T10 PO (12:42)
--- NOTE | 2017-01-23 12:42 | DS ---
Date/Time of Note Date/Time of Note DATE: 01/23/17 TIME: 12:41 Discharge Summary Admission/Discharge Info Admit Date/Time Jan 20, 2017 at 10:14 Discharge Date/Time 01/23/17 . Discharge Diagnosis 1. COPD exacerbation with hypoxia: much improved / hypoxia resolved 2. Influenza B infection causing atypical Pneumonia: improved 3. HIV / AIDs disease on HAART therapy with CD4 178 but patient reports undetectable viral load 4. Occasional Noncompliance: Patient admits to forgetting meds occasionally 5. Mild hyperlactatemia likely associated with HAART . Patient Condition: Stable Consults ID: [email or web address] . Hx of Present Illness 66-year-old male with a past medical history of HIV on treatment, COPD who presents today with a 2 day history of worsening difficulty in breathing as well as back pain bilaterally. Patient states his been having worsening cough productive of greenish sputum, he mentions night sweats but he is a poor historian and when I try to get more information about that it was not quite clear. He says he has had subjective fevers however. Patient was trying to really emphasize the fact that he has been and was still ill, and as a result, his history was somewhat sketchy. He does state he has been compliant with his HIV medications however, while he does remember his last CD4 count, he knows his tests have always been good. He quit smoking more than 13 years ago, but will smoke marijuana very occasionally once a month. He is on multiple inhalers at home including Spiriva and breo and states he has been using these with no improvement. He is being admitted for COPD exacerbation and hypoxia. Also found to be positive for influenza. . Hospital Course 66-year-old male who had presented with pleuritic back pain as well as shortness of breath and hypoxia was admitted with influenza as well as COPD exacerbation. He was treated for both and did well. Patient has a known history of HIV disease and is on outpatient heart therapy. He slowly improved despite adequate tissue perfusion however was found to have persistent lactic acidosis which was attributed to his HAART medications. This was reviewed with infectious disease, recommendation is for patient to follow-up urgently with his outpatient HIV physician for immediate adjustment of his regimen. This was communicated to patient in detail, and he has verbalized understanding and agreement. I will also be trying to obtain the name of the clinic from the patient, and I will be putting a call out myself to the patient's doctor. . Home Meds Active Scripts Levofloxacin* (Levofloxacin*) 500 Mg Tablet, 500 MG PO DAILY for 5 Days, TAB Prov:CATHERINE CATHERINE. 01/23/17 Albuterol/Ipratropium* (Combivent Respimat*) 20-100 Mcg/Inh - 4 Gm Aer.w.adap, 1 PUFF INHALATION Q4 Y for SHORTNESS OF BREATH, #1 INHALER 2 Refills Prov:CATHERINE CATHERINE. 01/23/17 Lisinopril* (Lisinopril*) 20 Mg Tablet, 20 MG PO DAILY, #30 TAB 2 Refills Prov:CATHERINE CATHERINE. 01/23/17 Salmeterol Xinaf/Fluticasone* (Advair*) 250-50 Diskus Inhaler, 1 INH INH BID, # 1 VIAL Prov:CATHERINE CATHERINE. 01/23/17 Tiotropium [place]* (Spiriva*) 18 Mcg Cap.w.dev, 1 INH INH DAILY, #1 VIAL 2 Refills Prov:CATHERINE CATHERINE. 01/23/17 Sulfamethoxazole/Trimethoprim (Sulfamethoxazole-Tmp Ds Tablet) 1 Each Tablet, 1 TAB PO DAILY for 30 Days, #60 TAB 2 Refills Prov:CATHERINE CATHERINE. 01/23/17 Oseltamivir Phosphate* (Tamiflu*) 75 Mg Capsule, 75 MG PO BID for 3 Days, CAP Prov:CATHERINE CATHERINE. 01/23/17 Discontinued Scripts Abacavir/Dolutegravir/Lamivudi (Triumeq Tablet) 1 Each Tablet, 1 EACH PO DAILY for 28 Days, TAB Prov:VANESSA NAJERA PA-C 07/06/16 Follow-up Plan Urgent followup with outpt HIV physician . Primary Care Provider Not On Staff Doctor Time spent on discharge: > 30 minutes Pending Labs Laboratory Tests Test 01/22/17 14:25 White Blood Count 7.410^3/ul (4.8-10.8) Red Blood Count 3.4710^6/ul (4.70-6.10) Hemoglobin 12.7g/dl (14.0-18.0) Hematocrit 38.4% (42.0-52.0) Mean Corpuscular Volume 110.7fl (82.0-101.0) Mean Corpuscular Hemoglobin 36.6pg (29.0-33.0) Mean Corpuscular Hemoglobin Concent 33.1g/dl (32.0-37.0) Red Cell Distribution Width 12.2% (11.5-14.5) Platelet Count 36941^3/UL (140-415) Mean Platelet Volume 10.0fl (7.4-10.4) Neutrophils % 72.9% (39.0-77.0) Lymphocytes % 15.2% (15.0-51.0) Monocytes % 10.7% (0.0-11.0) Eosinophils % 0.8% (0.0-7.0) Basophils % 0.1% (0.0-2.0) Nucleated Red Blood Cells % 0.0/100WBC (0.0-0.0) Neutrophils # 5.410^3/ul (1.6-7.5) Lymphocytes # 1.110^3/ul (0.8-2.9) Monocytes # 0.810^3/ul (0.3-0.9) Eosinophils # 0.110^3/ul (0.0-0.5) Basophils # 0.010^3/ul (0.0-0.1) Nucleated Red Blood Cells # 0.010^3/ul (0.0-0.0) Sodium Level 139mmol/L (135-144) Potassium Level 4.6mmol/L (3.5-5.1) Chloride Level 98mmol/L (97-110) Carbon Dioxide Level 34mmol/L (21-31) Anion Gap 12 (8-16) Blood Urea Nitrogen 12mg/dl (7-20) Creatinine 1.05mg/dl (0.61-1.24) Glucose Level 94mg/dl (70-220) Lactic Acid Level 2.2mmol/L (0.5-2.0) Calcium Level 9.3mg/dl (8.4-10.2) CATHERINE CATHERINE Jan 23, 2017 12:41
[2017-01-23] MEDS ORDERED: ONDA4TAB8 ODT (12:56)
--- NOTE | 2017-01-23 21:04 | CONS ---
Date/Time of Note Date/Time of Note DATE: 01/23/17 TIME: 21:03 Assessment/Plan Assessment/Plan Chief Complaint/Hosp Course SUBJECTIVE: Patient is awake, feels good, no SOB, no fevers MICROBIOLOGY: Blood culture negative. Influenza swab positive for influenza A. ANTIMICROBIALS: The patient is on Tamiflu and levofloxacin. DIAGNOSTICS: Chest x-ray revealed no acute pulmonary infiltrate. PHYSICAL EXAMINATION: GENERAL: Well-developed, elderly -Turkmen man who is alert, in no distress. HEENT: Head atraumatic, normocephalic. Sclerae anicteric. Buccal mucosa pink. NECK: Supple. CHEST: Rise symmetrical. Breath sounds clear. HEART: S1, S2. ABDOMEN: Soft. Bowel tones present. EXTREMITIES: Without cyanosis. ASSESSMENT: 1. Influenza A virus. 2. Chronic obstructive pulmonary disease exacerbation. 3. Human immunodeficiency virus with undetectable viral load, remains on Triumeq, CD4 178, likely 2 to acute illness as pt states his viral load is undetectable PLAN: The patient remains stable. Ok dc on current abx, f/u at HIV clinic for further rec-s and management DW pt Problems: Consultation Date/Type/Reason Admit Date/Time Jan 20, 2017 at 10:14 Type of Consultation: ID Exam/Review of Systems Vital Signs Vitals Vital Signs Date Time Temp Pulse Resp B/P Pulse Ox O2 Delivery O2 Flow Rate FiO2 01/23/17 08:00 Nasal Cannula 01/23/17 07:00 98.6 80 18 132/82 91 01/23/17 05:07 21 01/22/17 21:30 2.0 Intake and Output 01/22/17 01/22/17 01/23/17 15:00 23:00 07:00 Intake Total 100 ml 2320 ml 450 ml Balance 100 ml 2320 ml 450 ml Results Result Diagram: 01/22/17 1425 01/22/17 1425 BETITO BELLO NP Jan 23, 2017 21:04
== END 2017-01-23 13:20 | disposition home or self-care (01) | DRG 977 ==
LOC: E/R 08:17 → MS2 10:14
PROVIDERS: ADMIT Family Medicine; ATTEND Family Medicine
DX: B20 Human immunodeficiency virus [HIV] disease (principal); J10.00 Influenza due to other identified influenza virus with unspecified type of pneumonia; J44.1 Chronic obstructive pulmonary disease with (acute) exacerbation; Z91.14 Patient's other noncompliance with medication regimen; R09.02 Hypoxemia; Z87.891 Personal history of nicotine dependence
CPT/HCPCS: 36415; 71010; 80048; 80053; 80076; 83605; 83615; 84484; 85025; 85610; 85730; 86360; 87040; 87400; 93005; 93306; 94640; 94644; 94664; 96365; 96366; 96367; 96375; J1956; J2270; J2405; J2930; J3475; J7030

== ENCOUNTER 2017-09-03 13:05 | Inpatient (IN) | END 2017-09-04 16:57 | disposition home or self-care (01) | DRG 896 ==

== ENCOUNTER 2017-12-14 04:02 | Inpatient (IN) | END 2017-12-15 14:30 | disposition left against medical advice (07) | DRG 190 ==

== ENCOUNTER 2017-12-16 04:36 | Inpatient (IN) | END 2017-12-18 13:30 | disposition home health service (06) | DRG 190 ==

== ENCOUNTER 2017-12-29 14:42 | Inpatient (IN) | END 2018-01-10 16:45 | disposition hospice, home (50) | DRG 969 ==